=== PATIENT | female | born 1995 | race Caucasian/White ===

== ENCOUNTER 2017-01-13 09:53 | Emergency (ER) | payer MEDICAID ==
[2017-01-13 09:59] VITALS: BP 141/104
== END 2017-01-14 13:30 | disposition home or self-care (01) ==
LOC: ED 09:53
DX: L05.01 Pilonidal cyst with abscess (principal)
CPT/HCPCS: J2001

== ENCOUNTER 2017-01-15 07:50 | Emergency (ER) | payer MEDICAID ==
[2017-01-15 08:19] VITALS: BP 123/86
== END 2017-01-15 08:19 | disposition home or self-care (01) ==
LOC: ED 07:50
DX: Z48.01 Encounter for change or removal of surgical wound dressing (principal)
CPT/HCPCS: 90715